=== PATIENT | female | born 1965 | race Caucasian/White ===

== ENCOUNTER → 2016-08-14 | Outpatient (CLI) | payer BC ==
[2016-08-14 10:04] VITALS: BP 133/89
== END ==
LOC: MHUC 09:23
PROVIDERS: ATTEND Nurse Practitioner
DX: J02.9 Acute pharyngitis, unspecified (principal)
CPT/HCPCS: 99213

== ENCOUNTER → 2016-10-19 | Outpatient (CLI) | payer BC ==
[~2016-10-19] MED LIST: ALBU0.8322 IH; ALBU6.7H IH; ALBU8.5H6; AMOX875T2 PO; BACL20TA PO; CARV10CP PO; CYCL-265 PO; ESCI20TA PO; ESTR0.62 PO; FLUT8AER2 IH; GABA800T PO; GABA800T2 PO; GUAI120013 PO; HYDR-229 PO; HYDR-3811 PO; HYDR-3881 PO; HYDR-3882 GT; HYDR-3882 PO; LORA-405 PO; LOSA1TAB69 PO; LSNP10T PO; METH4TAB27 PO; MONT10TA21 PO; NAPR550T PO; NFLYR75C PO; NITR100C3 PO; OMEP20CA6 PO; OMEP20TA PO; ONDA8TAB9 PO; ONDAN4ODT PO; PHEN-640 PO; PRD10T PO; PROM25SU44 RC; PROP20TA5 PO; QUET150T PO; QUET400T12 PO; QUET50TA3 PO; SPIR25TA PO
--- NOTE | 2016-10-19 10:14 | Diagnostic Imaging Report ---
PROCEDURE: US Gallbladder. TECHNIQUE: Multiple real-time grayscale images were obtained over the right upper quadrant in various projections. INDICATION: Constipation, right upper quadrant pain. COMPARISON: 03/22/2015. FINDINGS: The echodense liver is consistent with hepatic steatosis, not convincingly changed in magnitude. The gallbladder is normal. There is no biliary ductal dilatation. The portal vein is patent and hepatopetal. No ascites or perihepatic fluid collection. The aorta is nonaneurysmal where visualized but distally obscured by gas. There is no intra or extrahepatic bile duct dilatation. The unobstructed right kidney measures 9.6 cm and is stable and negative. IMPRESSION: Nonfocal gallbladder. Unchanged hepatic steatosis. No ascites. Negative right kidney. Dictated by: Dictated on workstation # [id number]
== END ==
LOC: RAD 08:34
PROVIDERS: ATTEND Family Medicine
DX: K82.9 Disease of gallbladder, unspecified (principal)
CPT/HCPCS: 76705

== ENCOUNTER → 2016-11-03 | Outpatient (REF) | payer BC ==
[2016-11-03 12:31] LABS: ALBUMIN 3.9 g/dL (3.4-5.0); ANION GAP 13.9 MEQ/L (3-15); CALCULATED IONIZED CALCIUM 4.2 mg/dL (3.8-4.6); TOTAL PROTEIN 6.4 g/dL (6.4-8.5)
== END ==
LOC: LAB 11:41
PROVIDERS: ATTEND Family Medicine
DX: I10 Essential (primary) hypertension (principal); R73.09 Other abnormal glucose
CPT/HCPCS: 80053; 83036